=== PATIENT | female | born 1985 | race Caucasian/White ===

== ENCOUNTER 2021-10-20 14:14 | Emergency (ER) | payer OTHER ==
[~2021-10-20] VITALS: Ht 165.1 cm; Wt 74.0 kg
[2021-10-20] MEDS ORDERED: ONDANSETRON ODT 4 MG TAB.RAPDIS PO ONE (14:45)
[2021-10-20] MEDS ORDERED: diphenhydrAMINE HCL 25 MG CAPSULE PO ONE (14:45)
[2021-10-20] MEDS ORDERED: METOCLOPRAMIDE HCL 10 MG/2 ML VIAL. IM ONE (14:45)
--- NOTE | 2021-10-20 14:48 | PHYS DOC ---
Past History Past Surgical History: Other Additional Past Surgical Histo: throid Alcohol Use: None Adult General Chief Complaint Chief Complaint: NAUSEA/VOMITING/DIARRHEA HPI HPI Patient is an otherwise healthy 36-year-old female presents emergency department with a chief complaint of some nausea and vomiting, nonbloody nonbilious that started earlier in the day. States she is had about 4 episodes. Denies any other recent traumas, travels, illnesses, fevers, chest pain, shortness of breath, dysuria, hematuria, blood in the stool or diarrhea. States she is had her Covid vaccinations. Denies any known ill contacts. Not sure if she ate anything bad or what she is was exposed to. Review of Systems Review of Systems Review of systems otherwise unremarkable except noted in HPI Allergies Allergies Allergies Coded Allergies Type Severity Reaction Last Updated Verified No Known Drug Allergies 10/20/21 No Physical Exam Physical Exam Constitutional: Well developed, well nourished, no acute distress, non-toxic appearance. [] HENT: Normocephalic, atraumatic, bilateral external ears normal, oropharynx moist, no oral exudates, nose normal. [] Eyes: conjunctiva normal, no discharge. [] Neck: Normal range of motion, no tenderness, supple, no stridor. [] Cardiovascular:Heart rate regular rhythm, no murmur [] Lungs & Thorax: No respiratory distress Abdomen: soft, no tenderness, no masses, no pulsatile masses. [] Skin: Warm, dry, no erythema, no rash. [] Extremities: No tenderness, no cyanosis, no clubbing, ROM intact, no edema. [] Neurologic: Alert and oriented X 3, no focal deficits noted. [] Psychologic: Affect normal, judgement normal, mood normal. [] Current Patient Data Vital Signs Vital Signs Date Time Temp Pulse Resp B/P (MAP) Pulse Ox O2 Delivery O2 Flow Rate FiO2 10/20/21 14:30 98.6 89 16 139/75 (96) 98 Room Air EKG EKG [] Radiology/Procedures Radiology/Procedures [] Heart Score C/O Chest Pain: No Risk Factors: Risk Factors: DM, Current or recent (<one month) smoker, HTN, HLP, family history of CAD, obesity. Risk Scores: Risk Factors: DM, Current or recent (<one month) smoker, HTN, HLP, family history of CAD, obesity. Course & Med Decision Making Course & Med Decision Making Patient is a 36-year-old female presents with a chief complaint of nausea and vomiting Vital signs nonconcerning. Physical exam noted above. Given medications for symptom management negative. On reassessment, patient symptoms resolved and was able to take p.o. Sent home with [facility] Discussed symptom management at home. Discussed diet and hydration. Advised to call primary care physician in the morning to update on ED visit Gave return precautions to the ED. Patient grateful, verbalized understanding and agreed with plan of discharge. Dragon Disclaimer Dragon Disclaimer This electronic medical record was generated, in whole or in part, using a voice recognition dictation system. Departure Departure: Impression: Primary Impression: Nausea & vomiting Disposition: HOME / SELF CARE / HOMELESS Condition: STABLE Referrals: PCP,UNKNOWN (PCP) MARY BRITTON Patient Instructions: Nausea and Vomiting Additional Instructions: Thank you for coming into the emergency department tonight and allowing us to take care of you. Please read the attached information carefully go over things we discussed. You continue 50 mg of Benadryl every 6 hours as needed to help with your symptom control. Please take your nausea medicine as prescribed and as needed. Please be sure to stay well-hydrated and eat a light clear diet over the next day or 2 to allow some bowel rest. Please follow-up tomorrow with your primary care physician update on your ED visit and set up a follow-up. Please come back with new or concerning symptoms as discussed. Scripts Ondansetron (ONDANSETRON ODT) 4 Mg Tab.rapdis 1 TAB PO PRN Q6-8HRS for N/V, #16 TAB Prov: TOBY GARCIA MD 10/20/21 TOBY GARCIA MD Oct 20, 2021 14:48
[2021-10-20 15:40] VITALS: BP 140/71
[2021-10-20] MEDS ORDERED: ONDA4TAB12 PO (15:46)
== END 2021-10-20 15:51 | disposition home or self-care (01) ==
LOC: ER 14:14
DX: R11.2 Nausea with vomiting, unspecified (principal)
CPT/HCPCS: 81025; 96372; 99283; J2765; Q0162; Q0163